=== PATIENT | male | born 1950 | race Caucasian/White ===

== ENCOUNTER 2018-03-16 11:05 | Day surgery (SDC) | payer MEDICARE ==
[2018-03-11 15:27] VITALS: BMI 25.8
[~2018-03-16 11:05] MED LIST: LACTATED RINGERS 1,000 ML IV SCH
[2018-03-16 13:01] VITALS: TEMP 98.3
[2018-03-16] MEDS ORDERED: LIDOCAINE 1% 20 ML VIAL (10MG/ML) FOR IV START INTRADERMA ONE (13:02)
[2018-03-16] MEDS ORDERED: PROPOFOL 10 MG/ML 20 ML VIAL IV ONE (13:26)
[2018-03-16] MEDS ORDERED: LIDOCAINE 1% INJ 10MG/ML (20 ML MDV) ONE (13:26)
[2018-03-16 13:55] VITALS: RESP 16
--- NOTE | 2018-03-16 13:56 | P.PCN ---
Date of Procedure: 03/16/18 Procedure(s) Performed: Procedure: Total colonoscopy. Preoperative diagnosis: Screening for neoplasia. Postoperative diagnosis: Exam within normal limits. Preparation: HalfLytely prep. Sedation: Was provided by anesthesia. Brief clinical history: The patient is 67-year-old male who is scheduled for this evaluation for screening for neoplasia because of history of polyps. His last exam was around 5 years ago. The patient has no abdominal complaints, bleeding or anemia. Procedure: With the patient on his left lateral decubitus position and after informed consent and adequate sedation, the perianal area was inspected and it did not show any fissures or fistulas. There were no masses felt on digital rectal examination. The Olympus CFQ 160L video colonoscope was then inserted in the rectum in the usual fashion and advanced to the cecum. The mucosa appeared healthy. No polyps or tumors were seen or any obvious diverticular disease or other pathology. I retroflexed the endoscope in the rectum before the endoscope was withdrawn. The patient tolerated the procedure well. Plan: The patient was reassured. He will follow up with you as planned and I recommended repeat exam in 5 years.
[2018-03-16 14:17] VITALS: BP 145/86; PULSE 59
== END 2018-03-16 14:28 | disposition home or self-care (01) ==
LOC: ORWHC2ENDO 11:05
DX: Z12.11 Encounter for screening for malignant neoplasm of colon (principal); Z86.010 Personal history of colon polyps; I25.10 Atherosclerotic heart disease of native coronary artery without angina pectoris; I25.2 Old myocardial infarction; M19.90 Unspecified osteoarthritis, unspecified site; I10 Essential (primary) hypertension; E78.5 Hyperlipidemia, unspecified; Z79.82 Long term (current) use of aspirin; Z79.899 Other long term (current) drug therapy; Z88.8 Allergy status to other drugs, medicaments and biological substances
CPT/HCPCS: J2001; J2704; G0105; 45378

== ENCOUNTER → 2021-10-01 | Outpatient (CLI) | payer MEDICARE ==
--- NOTE | 2021-10-01 15:51 | XR ---
EXAMINATION TYPE: XR cervical spine comp DATE OF EXAM: 10/01/2021 COMPARISON: NONE HISTORY: Pain TECHNIQUE: Four views are submitted. FINDINGS: The odontoid is intact. There are no compression deformities. The prevertebral soft tissue structur es are within normal limits. Calcifications in the soft tissues the neck likely related to carotid a rtery calcification. Ossification posteriorly seen. There is a severe degenerative disc disease at vi rtually all levels with hypertrophic spurring. Retrolisthesis of C3 relative to C4. IMPRESSION: 1. Multilevel severe degenerative disc disease and facet arthropathy with multilevel foraminal encroa chment suspected. Recommend follow-up MRI. 2. Atherosclerotic change of the carotid arteries correlate clinically.
== END | disposition home or self-care (01) ==
LOC: RADXRMAIN 14:54
PROVIDERS: ATTEND Internal Medicine Geriatric Medicine
DX: M50.30 Other cervical disc degeneration, unspecified cervical region (principal); M47.812 Spondylosis without myelopathy or radiculopathy, cervical region
CPT/HCPCS: 72050

== ENCOUNTER → 2021-10-02 | Outpatient (CLI) | payer MEDICARE ==
[2021-10-02 14:28] LABS: Basophils # (A) 0.07 X 10*3/uL (0.00-0.10); Basophils % (A) 1.2 %; Eosinophils # (A) 0.16 X 10*3/uL (0.04-0.35); Eosinophils % (A) 2.7 %; HCT 46.1 % (39.6-50.0); HGB 15.2 g/dL (13.0-17.0); Lymphocytes % (A) 32.6 %; MCH 29.8 pg (27.0-32.0); MCV 90.4 fL (80.0-97.0); Mean Platelet Volume 11.6 fL (9.5-12.2); Monocytes # (A) 0.46 X 10*3/uL (0.20-1.00); Monocytes % (A) 7.9 %; Neutrophils # (A) 3.23 X 10*3/uL (1.80-7.70); Neutrophils % (A) 55.4 %; Platelet Count 203 X 10*3/uL (140-440); RDW 12.8 % (11.5-14.5); WBC 5.83 X 10*3/uL (4.50-10.00)
[2021-10-02 16:17] LABS: ALT 61 U/L (10-49); AST 28 U/L (14-35); African American GFR (CKD) 83.7 (60.0-200.0); Albumin 4.4 g/dL (3.8-4.9); Albumin/Globulin Ratio 2.15 (1.60-3.17); Alkaline Phosphatase 66 U/L (41-126); Blood Urea Nitrogen 20.6 mg/dL (9.0-27.0); Calcium 9.7 mg/dL (8.7-10.3); Chloride 105 mmol/L (96-109); Chol/HDL Ratio 3.33 Ratio; Globulin 2.1 g/dL (1.6-3.3); Glucose 98 mg/dL (70-110); LDL Cholesterol,Calculated 56.5 mg/dL (0.0-131.0); Non-African American GFR(CKD) 72.2 (60.0-200.0); Potassium 5.6 mmol/L (3.5-5.5); Sodium 143 mmol/L (135-145); Total Protein 6.5 g/dL (6.2-8.2)
== END | disposition home or self-care (01) ==
LOC: LABWHC1 08:49
PROVIDERS: ATTEND Internal Medicine Geriatric Medicine
DX: I25.10 Atherosclerotic heart disease of native coronary artery without angina pectoris (principal); E78.2 Mixed hyperlipidemia; N40.1 Benign prostatic hyperplasia with lower urinary tract symptoms; R73.9 Hyperglycemia, unspecified
CPT/HCPCS: 36415; 80053; 80061; 83036; 84153; 84443; 85025

== ENCOUNTER → 2021-10-31 | Outpatient (CLI) | payer MEDICARE ==
--- NOTE | 2021-10-31 11:59 | US ---
EXAMINATION TYPE: US carotid duplex BILAT DATE OF EXAM: 10/31/2021 COMPARISON: NONE CLINICAL HISTORY: I65.29 occlusion of carotid artery. CAD WITH STENTS; NC EXAM MEASUREMENTS: RIGHT: Peak Systolic Velocity (PSV) cm/sec ----- Right CCA: 72.1 ----- Right ICA: 83.1 ----- Right ECA: 117.3 ICA/CCA ratio: 1.2 RIGHT: End Diastole cm/sec ----- Right CCA: 11.7 ----- Right ICA: 13.8 ----- Right ECA: 12.4 LEFT: Peak Systolic Velocity (PSV) cm/sec ----- Left CCA: 78.4 ----- Left ICA: 101.7 ----- Left ECA: 96.5 ICA/CCA ratio: 1.3 LEFT: End Diastole cm/sec ----- Left CCA: 16.3 ----- Left ICA: 24.1 ----- Left ECA: 0.0 VERTEBRALS (direction of flow): Right Vertebral: Retrograde flow and is documented by color flow and pulse wave Doppler. Left Vertebral: Antegrade Rhythm: Normal Moderate wall plaque is noted at bilateral carotid bifurcation, but PSV is wnl bilaterally. Reverse r ight vertebral artery flow is noted. IMPRESSION: No hemodynamically significant stenosis. Reversal of right vertebral artery flow identif ied. Criteria for Assigning % of Stenosis / Diameter reduction (Estimation based on the indirect measurements of the internal carotid artery velocities (ICA PSV). 1. Normal (no stenosis)=ICA PSV < 125 cm/s: ratio < 2.0: ICA EDV<40 cm/s. 2. Less than 50% stenosis=ICA PSV < 125 cm/s: ratio < 2.0: ICA EDV<40 cm/s. 3. 50 to 69% stenosis=ICA PSV of 125 to 230 cm/s: ration 2.0 ? 4.0: ICA EDV 40-100 cm/s. 4. Greater than 70% stenosis to near occlusion= ICA PSV > 230 cm/s: ratio > 4.0: ICA EDV > 100 cm/s. 5. Near occlusion= ICA PSV velocities may be low or undetectable: variable ratio and ICA EDV. 6. Total occlusion=unable to detect flow.
== END | disposition home or self-care (01) ==
LOC: RADUSWWP 10:52
PROVIDERS: ATTEND Internal Medicine Geriatric Medicine
DX: I65.23 Occlusion and stenosis of bilateral carotid arteries (principal)
CPT/HCPCS: 93880

== ENCOUNTER → 2021-11-07 | Outpatient (CLI) | payer MEDICARE ==
--- NOTE | 2021-11-07 15:50 | MR ---
EXAMINATION TYPE: MR cervical spine wo/w con DATE OF EXAM: 11/07/2021 COMPARISON: Radiograph 10/01/2021 HISTORY: 71-year-old male M48.02, Spinal stenosis, pain Technique: Multiplanar, multisequence images of the cervical spine were obtained before and after adm inistration of 8 mL intravenous Gadavist gadolinium contrast. FINDINGS: No craniocervical junction abnormality, predental space widening, or prevertebral soft tissue swellin g. There is a small effusion within the left C1-C2 lateral mass articulation. [id number]-voodbqvl multilevel disc/endplate degenerative change especially C3-C7 levels with desiccated disks and discussed by complex formation. Scattered mild ligamentum flavum thickening. Bilateral facet and uncovertebral joint arthropathy is also demonstrated. There is scattered Modic type II fatty endplate change. No suspicious bone marrow placement. At C2-C3, facet and uncovertebral joint arthropathy with moderate right and mild left neuroforaminal stenosis. No significant spinal canal stenosis. At C3-C4, disc osteophyte complex with uncovertebral joint and facet arthropathy. Moderate right and mild left neural foraminal stenosis. Mild spinal canal stenosis with abutment of the ventral cord but no cord flattening. At C4-C5, disc osteophyte complex with uncovertebral joint and facet arthropathy. Changes result in l eft greater than right moderate neural foraminal stenosis. Mild overall narrowing of the spinal canal . Ligamentum flavum thickening abuts the dorsal cord. No cord flattening. At C5-C6, disc osteophyte complex with uncovertebral joint and facet arthropathy. Changes result in m [id number] left neural foraminal stenosis and mild overall narrowing of the spinal canal. No cor d flattening. At C6-C7, disc osteophyte complex with uncovertebral joint and facet arthropathy. Changes result in m [id number] bilateral neural foraminal stenosis. Mild overall narrowing of the spinal canal. At C7-T1, no canal or foraminal stenosis. No prevertebral or paravertebral soft tissue probably seen. No abnormal enhancement within the spinal canal. Normal course and signal intensity of the cervical spinal cord. IMPRESSION: 1. Moderate multilevel discogenic degenerative change with scattered disc osteophyte complexes. Multi level facet and uncovertebral joint arthropathy. 2. Variable moderate neuroforaminal stenosis as outlined above. 3. Mild multilevel spinal canal stenoses from C3 through C7 levels. There is abutment of the cord at various levels but no cord compression or mulugeta canal compromise.
== END | disposition home or self-care (01) ==
LOC: RADMRIMAIN 12:06
PROVIDERS: ATTEND Internal Medicine Geriatric Medicine
DX: M50.123 Cervical disc disorder at C6-C7 level with radiculopathy (principal); M47.22 Other spondylosis with radiculopathy, cervical region; M99.51 Intervertebral disc stenosis of neural canal of cervical region; M48.02 Spinal stenosis, cervical region; M25.78 Osteophyte, vertebrae
CPT/HCPCS: 72156; A9585

== ENCOUNTER → 2022-02-15 | Outpatient (CLI) | payer MEDICARE ==
[2022-02-15 14:07] LABS: Basophils # (A) 0.03 X 10*3/uL (0.00-0.10); Basophils % (A) 0.6 %; Eosinophils # (A) 0.23 X 10*3/uL (0.04-0.35); Eosinophils % (A) 4.5 %; HCT 45.6 % (39.6-50.0); HGB 15.2 g/dL (13.0-17.0); Immature Grans, Automated 0.4 %; Lymphocytes # (A) 1.61 X 10*3/uL (0.90-5.00); Lymphocytes % (A) 31.3 %; MCH 30.5 pg (27.0-32.0); MCHC 33.3 g/dL (32.0-37.0); MCV 91.6 fL (80.0-97.0); Mean Platelet Volume 11.8 fL (9.5-12.2); Monocytes # (A) 0.57 X 10*3/uL (0.20-1.00); Monocytes % (A) 11.1 %; NRBC Per 100 WBC 0 /100 WBCS (0.0-0.0); Neutrophils # (A) 2.68 X 10*3/uL (1.80-7.70); Neutrophils % (A) 52.1 %; Platelet Count 195 X 10*3/uL (140-440); RBC 4.98 X 10*6/uL (4.40-5.60); WBC 5.14 X 10*3/uL (4.50-10.00)
[2022-02-15 14:21] LABS: ALT 50 U/L (10-49); AST 32 U/L (14-35); African American GFR (CKD) 71.8 (60.0-200.0); Albumin 4.2 g/dL (3.8-4.9); Albumin/Globulin Ratio 1.76 (1.60-3.17); Alkaline Phosphatase 56 U/L (41-126); BUN/Creat Ratio 18.29 Ratio (12.00-20.00); Blood Urea Nitrogen 21.4 mg/dL (9.0-27.0); Calcium 9.9 mg/dL (8.7-10.3); Carbon Dioxide 24.2 mmol/L (20.0-27.5); Chloride 102 mmol/L (96-109); Chol/HDL Ratio 2.93 Ratio; Globulin 2.4 g/dL (1.6-3.3); Glucose 94 mg/dL (70-110); LDL Cholesterol,Calculated 49.1 mg/dL (0.0-131.0); Non-African American GFR(CKD) 61.9 (60.0-200.0); Potassium 5.1 mmol/L (3.5-5.5); Sodium 137 mmol/L (135-145); Total Protein 6.6 g/dL (6.2-8.2)
== END | disposition home or self-care (01) ==
LOC: LABWHC1 08:48
PROVIDERS: ATTEND Internal Medicine Geriatric Medicine
DX: I25.10 Atherosclerotic heart disease of native coronary artery without angina pectoris (principal); R73.9 Hyperglycemia, unspecified; N40.1 Benign prostatic hyperplasia with lower urinary tract symptoms
CPT/HCPCS: 80061; 80053; 85025; 83036; 36415; G0103

== ENCOUNTER → 2024-05-28 | Outpatient (CLI) | payer MEDICARE ==
[2024-05-28 14:51] LABS: Basophils # (A) 0.06 X 10*3/uL (0.00-0.10); Basophils % (A) 1.1 %; Eosinophils # (A) 0.13 X 10*3/uL (0.04-0.35); Eosinophils % (A) 2.4 %; HCT 43.2 % (39.6-50.0); HGB 14.4 g/dL (13.0-17.0); Lymphocytes # (A) 1.59 X 10*3/uL (0.90-5.00); Lymphocytes % (A) 29.2 %; MCH 30.4 pg (27.0-32.0); MCHC 33.3 g/dL (32.0-37.0); MCV 91.1 FL (80.0-97.0); Mean Platelet Volume 11.1 FL (9.5-12.2); Monocytes # (A) 0.43 X 10*3/uL (0.20-1.00); Monocytes % (A) 7.9 %; NRBC Per 100 WBC 0 X 10*3/uL (0.00-0.01); Neutrophils # (A) 3.22 X 10*3/uL (1.80-7.70); Platelet Count 175 X 10*3/uL (140-440); RBC 4.74 X 10*6/uL (4.40-5.60); RDW 13.6 % (11.5-14.5); WBC 5.45 X 10*3/uL (4.50-10.00)
[2024-05-28 17:41] LABS: ALT 49 U/L (10-49); AST 30 U/L (14-35); Albumin 4.3 g/dL (3.8-4.9); Albumin/Globulin Ratio 2.15 Ratio (1.60-3.17); Alkaline Phosphatase 63 U/L (41-126); BUN/Creat Ratio 25.78 Ratio (12.00-20.00); Blood Urea Nitrogen 23.2 mg/dL (9.0-27.0); Calcium 9.6 mg/dL (8.7-10.3); Chloride 109 mmol/L (96-109); Chol/HDL Ratio 3.42 Ratio; Creatine Kinase 178 U/L (35-257); Glucose 98 mg/dL (70-110); LDL Cholesterol,Calculated 65.2 mg/dL (0.0-131.0); Potassium 5.4 mmol/L (3.5-5.5); Prostate Specific Antigen 2.67 ng/mL (0.000-6.500); Sodium 145 mmol/L (135-145); Total Bilirubin 0.6 mg/dL (0.3-1.2); Total Protein 6.3 g/dL (6.2-8.2)
== END | disposition home or self-care (01) ==
LOC: LABWHC1 09:23
PROVIDERS: ATTEND Internal Medicine Geriatric Medicine
DX: Z00.00 Encounter for general adult medical examination without abnormal findings (principal); E78.2 Mixed hyperlipidemia; N40.1 Benign prostatic hyperplasia with lower urinary tract symptoms; R73.9 Hyperglycemia, unspecified
CPT/HCPCS: 36415; 80053; 80061; 82550; 83036; 84153; 84443; 85025